=== PATIENT | female | born 1990 | race African-American/Black ===

== ENCOUNTER 2016-07-27 09:47 | Emergency (ER) | payer SELFPAY ==
[2016-07-27 09:55] VITALS: BP 126/69
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
[2016-07-27] MEDS ORDERED: Ketorolac INJ* 60 MG/2 ML VIAL IM ONE (12:25)
== END 2016-07-27 13:18 | disposition home or self-care (01) ==
LOC: ED 09:47
DX: H53.149 Visual discomfort, unspecified (principal); F07.81 Postconcussional syndrome; R51 Headache; R11.0 Nausea; R53.83 Other fatigue
CPT/HCPCS: 70450; 99282; J1885

== ENCOUNTER → 2017-04-24 12:13 | Emergency (ER) | payer OTHER ==
[~2017-04-24 12:13] MED LIST: Ketorolac INJ* 30 MG/ML 1 ML VIAL IV ONE; NS 0.9% 1000 ML* 1,000 ML IV ONE; Ondansetron INJ* 2 MG/ML VIAL IV ONE; Orphenadrine Citrate IV* 30 MG/ML 2 ML VIAL IV ONE; diPHENhydraMINE IV* 50 MG/ML 1 ml VIAL (BENADRYL) IV ONE
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
[2017-04-24 16:06] VITALS: BP 110/59
== END | disposition home or self-care (01) ==
LOC: ED 12:13
DX: G43.909 Migraine, unspecified, not intractable, without status migrainosus (principal); F41.8 Other specified anxiety disorders
CPT/HCPCS: 96360; 96374; 96375; 99284; J1200; J1885; J2360; J2405